=== PATIENT | male | born 1965 | race Two or more races ===

== ENCOUNTER 2016-08-05 09:43 | Emergency (ER) | payer SELFPAY ==
[~2016-08-05] VITALS: Ht 172.7 cm; Wt 77.1 kg
[2016-08-05] MEDS ORDERED: CAPZASIN QUIC42.5 GM TP (10:03)
[2016-08-05 10:30] VITALS: BP 165/98
--- NOTE | 2016-08-06 06:43 | Emergency Room Report ---
History of Present Illness General Chief Complaint: General Complaint Source: Patient Present Illness HPI 51YO M with alleged history of gout to "whole left ankle" BIBEMS after [employer] found patient "hanging out near a school." Patient is homeless. States he applies cream to ankle when he has a "gout attack." Otherwise denies fever/ chills, redness/swelling to left ankle. Denies trauma. Denies gout to other joints. Denies other medical problems. EMS states patient initially didnt want to go to hospital but [employer] "made him go." Allergies: Coded Allergies: No Known Allergies (Unverified , 08/05/16) Patient History Past Medical History: other - ?gout Past Surgical History: none Pertinent Family History: none Social History: Denies: alcohol use, drug use, smoking Immunizations: UTD Reviewed Nursing Documentation: PMH: Agreed, PSxH: Agreed Nursing Documentation-PMH Past Medical History: No Stated History Review of Systems All Other Systems: negative except mentioned in HPI Physical Exam Vital Signs Date Time Temp Pulse Resp B/P Pulse Ox O2 Delivery O2 Flow Rate FiO2 08/05/16 09:32 98.4 88 16 180/110 98 Sp02 EP Interpretation: reviewed, normal General Appearance: normal inspection, well appearing, no apparent distress, alert, other - Patient accompanied by 2-3 large suitcases of belonging Head: normocephalic, atraumatic Eyes: bilateral eye EOMI, bilateral eye PERRL ENT: normal ENT inspection, hearing grossly normal, normal voice Neck: normal inspection, full range of motion, supple, no bony tend Respiratory: normal inspection, lungs clear, normal breath sounds, no respiratory distress, no retraction, no wheezing Cardiovascular #1: regular rate, rhythm, no edema Gastrointestinal: normal inspection, normal bowel sounds, non tender, soft, no guarding, no hernia Genitourinary: no CVA tenderness Musculoskeletal: normal inspection, back normal, normal range of motion, Emory' s Sign negative, other - Left ankle: No obvious trauma or deformity. No appreciable warmth. Very mild ttp at joint spaces. Neurologic: normal inspection, alert, oriented x3, responsive, bobbin winder III-XII nml as tested, speech normal Psychiatric: normal inspection, judgement/insight normal, mood/affect normal Skin: normal inspection, normal color, no rash Medical Decision Making Diagnostic Impression: Primary Impression: Pain ER Course Capsaician cream Rx provided to patient He refused oral NSAIDS here I have low suspicion for actual gout at this time, as well as for septic joint or cellulitis DC with PMD followup Last Vital Signs Date Time Temp Pulse Resp B/P Pulse Ox O2 Delivery O2 Flow Rate FiO2 08/05/16 10:30 98.4 78 16 165/98 98 Status: improved Disposition: HOME, SELF-CARE Condition: Improved Scripts Capsaicin/Menthol (CAPZASIN QUICK RELIEF GEL) 42.5 Gm Gel.w.appl 42.5 GM TP TID for 7 Days, #1 UNIT Prov: CEDRIC WILKINS M.D. 08/05/16 Referrals: NOT CHOSEN IPA/,REFERRING (PCP) Patient Instructions: Gout, [id number], Ankle Pain CEDRIC WILKINS M.D. Aug 06, 2016 06:43
== END 2016-08-05 10:30 | disposition home or self-care (01) ==
LOC: EDBD 09:43 → EMR 10:15
DX: M10.9 Gout, unspecified (principal)
CPT/HCPCS: 99283